=== PATIENT | female | born 1990 | race American Indian/Alaskan Native ===

== ENCOUNTER 2020-07-21 13:30 | Emergency (ER) | payer SELFPAY ==
[2020-07-21 14:06] VITALS: BP 108/64
[2020-07-21] MEDS ORDERED: ACETAMINOPHEN 325 MG TAB PO ONE (17:11)
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
== END 2020-07-21 19:35 | disposition home or self-care (01) ==
LOC: ED 13:30
DX: O9A.211 Injury, poisoning and certain other consequences of external causes complicating pregnancy, first trimester (principal); S39.012A Strain of muscle, fascia and tendon of lower back, initial encounter; R50.9 Fever, unspecified; R10.2 Pelvic and perineal pain; Z3A.12 12 weeks gestation of pregnancy; V89.2XXA Person injured in unspecified motor-vehicle accident, traffic, initial encounter; Y93.89 Activity, other specified; Y92.410 Unspecified street and highway as the place of occurrence of the external cause; Y99.8 Other external cause status
CPT/HCPCS: 76801; 76817

== ENCOUNTER 2021-01-01 10:06 | Outpatient (CLI) | payer MEDICAID, OTHER ==
[2021-01-01 11:30] VITALS: BP 125/73
[2021-01-01] MEDS ORDERED: LACTATED RINGERS 1,000 ML IV ONE (11:30)
== END 2021-01-01 11:59 | disposition home or self-care (01) ==
LOC: TRG 10:06 → APU 10:07 → TRG 11:59
PROVIDERS: ATTEND Obstetrics & Gynecology
DX: Z34.93 Encounter for supervision of normal pregnancy, unspecified, third trimester (principal); Z3A.36 36 weeks gestation of pregnancy
CPT/HCPCS: 59025

== ENCOUNTER 2021-02-01 08:36 | Inpatient (IN) | payer MEDICAID ==
[2021-02-01] MEDS ORDERED: TERBUTALINE 1 MG/1 ML INJ SUB-Q PRN (09:21)
[2021-02-01] MEDS ORDERED: LIDOCAINE (2%) 20 MG/1 ML VIAL 20 ML MDV INFILTRATI NR (09:21)
[2021-02-01] MEDS ORDERED: OXYTOCIN DRIP 30,000 MILLIUNITS/500 ML BAG IV ONE (09:49)
--- NOTE | 2021-02-01 09:49 | History and Physical Report ---
History of Present Illness Date of examination: 02/01/21 Date of admission: 02/01/2021 Chief complaint: Active labor History of present illness: 30-year-old -0-0-2 at 38 and 4/7 weeks in active labor. care at [facility] with Dr. Yudith WYMAN 01/29/2020 bone by last normal menstrual period First visit at 7-3/7 weeks, last visit at 35-1/7 weeks with a total of 7 visits A positive antibody screen negative Varicella immune AFP screen negative HIV negative Hep B negative RPR nonreactive Rubella immune Fragile X syndrome positive Cystic fibrosis negative Past History Past Surgical History: no surgical history - Obstetrical History Expected Date of Delivery: 01/28/21 Actual Gestation: 40 Week(s) 4 Day(s) : 3 Medications and Allergies Allergies Allergy/AdvReac Type Severity Reaction Status Date / Time No Known Allergies Allergy Verified 10/11/14 15:48 Home Medications Medication Instructions Recorded Confirmed Last Taken Type No Known Home Medications [No 10/11/14 10/11/14 Unknown History Reported Home Medications] Active Meds: Active Medications Acetaminophen (Acetaminophen 325 Mg Tab) 650 mg PO Q4H PRN PRN Reason: Pain, Mild (1-3) Butorphanol Tartrate (Butorphanol 2 Mg/1 Ml Inj) 1 mg IV Q2H PRN PRN Reason: Pain, Moderate(4-6) LABOR PAIN Butorphanol Tartrate (Butorphanol 2 Mg/1 Ml Inj) 2 mg IV Q2H PRN PRN Reason: Pain , Severe (7-10) Ephedrine Sulfate (Ephedrine Sulfate 50 Mg/1 Ml Inj) 10 mg IV Q2M PRN PRN Reason: Hypotension Oxytocin/Sodium Chloride (Pitocin/Ns 30 Unit/500ml) 30 units in 500 mls @ 2 mls/hr IV TITR CECILIA; Protocol Lactated Ringer's (Lactated Ringers) 1,000 mls @ 125 mls/hr IV DIRECT CECILIA Oxytocin/Sodium Chloride (Pitocin/Ns 30 Unit/500ml) 30 units in 500 mls @ 40 mls/hr IV TITR CECILIA; Protocol Lidocaine (Lidocaine (2%) 20 Mg/1 Ml Vial 20 Ml Mdv) 20 ml INFILTRATI ONCE ONE Stop: 02/01/21 09:22 Mineral Oil (Mineral Oil 30 Ml Oral Liqd) 30 ml PO QHS PRN PRN Reason: Constipation Terbutaline Sulfate (Terbutaline 1 Mg/1 Ml Inj) 0.25 mg SUB-Q ONCE PRN PRN Reason: Hyperstimulation/Hypertonicity - Vital Signs Vital signs: Vital Signs Temp Pulse BP Pulse Ox 98.5 F 101 H 129/79 99 02/01/21 09:17 02/01/21 09:17 02/01/21 09:17 02/01/21 09:17 Temp Pulse Resp BP Pulse Ox 98.5 F 91 H 129/79 99 02/01/21 09:17 02/01/21 09:37 02/01/21 09:19 02/01/21 09:37 - Physical Exam Breasts: Positive: deferred Cardiovascular: Regular rate Lungs: Positive: Clear to auscultation Abdomen: Positive: normal appearance, normal bowel sounds Genitourinary (Female): Positive: normal external genitalia Anus/Rectum: Positive: normal perianal skin Extremities: Positive: normal Deep Tendon Reflex Grade: Normal +2 - Obstetrical FHR: category 1 Cervical Dilatation: 5 Uterine Contraction Frequency (min): 2 Uterine Contraction Pattern: Regular Results All other labs normal. Assessment and Plan active labor Plan: CFM pain meds prn maternal/ well being reassuring at bedside continue current management, expect LISY Jennings MD
[2021-02-01] MEDS ORDERED: BUTORPHANOL 2 MG/1 ML INJ IV PRN ×2 (10:00)
[2021-02-01] MEDS ORDERED: OXYTOCIN DRIP 30 UNITS/500 ML BAG IV SCH ×2 (10:00)
[2021-02-01] MEDS ORDERED: ACETAMINOPHEN 325 MG TAB PO PRN (10:00)
[2021-02-01] MEDS ORDERED: LACTATED RINGERS 1,000 ML IV SCH (10:00)
[2021-02-01] MEDS ORDERED: ePHEDrine SULFATE 50 MG/1 ML INJ IV PRN (10:00)
--- NOTE | 2021-02-01 10:16 | Progress Note ---
Subjective - Subjective Date of service: 02/01/21 Interval history: 5/100/-3 AROM thick meconium FHT Category 1 plan for epidural Josué Jennings MD Objective - Vital Signs Vital Signs: Vital Signs - 12hr 02/01/21 02/01/21 02/01/21 09:17 09:19 09:22 Temperature 98.5 F Pulse Rate 95 H 84 95 H Respiratory Rate Blood Pressure 129/79 Blood Pressure 129/79 [Right] O2 Sat by Pulse 100 98 Oximetry 02/01/21 02/01/21 02/01/21 09:27 09:32 09:37 Temperature Pulse Rate 92 H 94 H 91 H Respiratory Rate Blood Pressure Blood Pressure [Right] O2 Sat by Pulse 99 99 99 Oximetry 02/01/21 02/01/21 02/01/21 09:42 09:52 09:54 Temperature Pulse Rate 98 H 89 Respiratory 22 Rate Blood Pressure Blood Pressure [Right] O2 Sat by Pulse 100 98 Oximetry 02/01/21 02/01/21 02/01/21 09:58 09:59 10:04 Temperature Pulse Rate 91 H 82 78 Respiratory Rate Blood Pressure Blood Pressure [Right] O2 Sat by Pulse 93 97 97 Oximetry 02/01/21 10:09 Temperature Pulse Rate 81 Respiratory Rate Blood Pressure Blood Pressure [Right] O2 Sat by Pulse 96 Oximetry
[2021-02-01 10:30] LABS: Hematocrit 35.6 % (30.3-42.9); Hemoglobin 12.1 gm/dl (10.1-14.3); Mean Corpuscular HGB Conc 34 % (30-34); Mean Corpuscular Volume 91 fl (79-97); Platelet Count 184 K/mm3 (140-440); Red Blood Count 3.93 M/mm3 (3.65-5.03); Red Cell Distribution Width 15.6 % (13.2-15.2)
[2021-02-01] MEDS ORDERED: ONDANSETRON 4 MG/2 ML INJ IV PRN (11:00)
[2021-02-01] MEDS ORDERED: NalbUPHINE 10 MG/1 ML INJ IV PRN (11:00)
[2021-02-01] MEDS ORDERED: NALOXONE 2 MG/2 ML INJ IV PRN (11:00)
[2021-02-01] MEDS ORDERED: LACTATED RINGERS 250 ML IV SOLN IV ONE (11:00)
[2021-02-01] MEDS ORDERED: diphenhydrAMINE 50 MG/ML VIAL IV PRN (11:00)
[2021-02-01] MEDS: fentaNYL-BUPIV 2 MCG/ML-0.125% 200 MCG/100 ML BAG EPIDURAL SCH ×2 (11:22→19:38)
--- NOTE | 2021-02-01 11:36 | Anesthesia Consultation ---
Anesthesia Consult and Med Hx Date of service: 02/01/21 - Airway Anesthetic Teeth Evaluation: Good ROM Head & Neck: Adequate Mental/Hyoid Distance: Adequate Mallampati Class: Class II Intubation Access Assessment: Probably Good - Pulmonary Exam CTA: Yes - Cardiac Exam Cardiac Exam: RRR - Pre-Operative Health Status ASA Pre-Surgery Classification: ASA2 Proposed Anesthetic Plan: Epidural - Pulmonary Hx Smoking: No Hx Asthma: No COPD: No Hx Pneumonia: No Hx Sleep Apnea: No - Cardiovascular System Hx Hypertension: No Hx Heart Attack/AMI: No Hx Angina: No - Central Nervous System Hx Seizures: No Hx Psychiatric Problems: No - Endocrine Hx Renal Disease: No Hx End Stage Renal Disease: No Hx Liver Disease: No Hx Insulin Dependent Diabetes: No Hx Non-Insulin Dependent Diabetes: No Hx Hypothyroidism: No Hx Hyperthyroidism: No - Hematic Hx Anemia: No Hx Sickle Cell Disease: No - Other Systems Hx Alcohol Use: No
--- NOTE | 2021-02-01 11:37 | Progress Note ---
Labor Epidural - Labor Epidural Start Time: 10:50 Stop Time: 11:05 Performed by:: LORA SALDANA Procedure: Patient is requesting epidural for labor and pain. H&P, labs were reviewed. Patient IDed, H&P reviewed, all questions and concerns were answered, and consent was signed. Timeout was performed at bedside. Patient in sitting position. Sterile prep and drape was performed. 3ml of 1% lidocaine skin wheal at L[3]- L [4]. 18-gauge Tuohy epidural needle was advanced to loss of resistance with air technique 7cm. Negative CSF negative blood. Epidural catheter advanced to [13] centimeters. [negative] Aspiration [negative] test dose. Sterile dressing applied. Patient tolerated procedure.
--- NOTE | 2021-02-01 12:34 | Event Note ---
Date: 02/01/21 Assumed care of patient at 10:30 AM. Patient is comfortable after receiving epidural. SVE /-3; meconium stained amniotic fluid noted. No lesion seen on careful exam under bright light.
--- NOTE | 2021-02-01 13:58 | Event Note ---
Date: 02/01/21 SVE 80/-2.
--- NOTE | 2021-02-01 15:57 | Event Note ---
Date: 02/01/21 IUPC placed to determine adequacy of contractions. No cervical change at this time.
--- NOTE | 2021-02-01 18:10 | Event Note ---
Date: 02/01/21 Patient reports pelvic pressure. SVE /-1.
[2021-02-01] MEDS ORDERED: BUPIVACAINE/PF (0.25%) 2.5 MG/ML 10 ML VIAL INFILTRATI ONE ×2 (18:19→21:50)
--- NOTE | 2021-02-01 21:59 | Event Note ---
Date: 02/01/[address] Jennings re: patient and slow cervical change. SVE 9/[address]/-[address] Jennings orders to stop Pitocin for 2 hours and to start patient on Ampicillin and Gentamicin. Orders put in and informed patient's nurse of the above orders.
[2021-02-01] MEDS ORDERED: AMPICILLIN/NS 2 GM/100 ML 2 GM/100 ML BAG IV SCH (22:00)
[2021-02-01] MEDS ORDERED: MINERAL OIL 30 ML ORAL LIQD PO PRN (22:00)
[2021-02-01 22:44] LABS: Alanine Aminotransferase 15 units/L (7-56); Albumin 3.5 g/dL (3.9-5); Blood Urea Nitrogen 6 mg/dL (7-17); Calcium 8.7 mg/dL (8.4-10.2); Hemolysis Index 38
[2021-02-01 22:45] LABS: BUN/Creatinine Ratio 9
[2021-02-01] MEDS ORDERED: GENTAMICIN/NS 100 MG/100 ML 100 MG/100 ML BAG IV SCH (23:00)
--- NOTE | 2021-02-02 02:27 | Event Note ---
Date: 02/02/21 Cervix anterior lip at 01:30. At 01:45 patient had a strong urge to push. Pushed for about 20 minutes with no change in station and variable FHR decelerations with pushing. Consulted with Dr. Jennings re: cervical dilation, attempt at pushing with no change in station, and FHR tracing. Dr. Jennings states to allow patient to labor down/rest for 2 hours, then try to push again.
[2021-02-02] MEDS ORDERED: miSOPROStol 200 MCG TAB VG ONE (03:00)
[2021-02-02] MEDS ORDERED: miSOPROStol 200 MCG TAB ONE (03:01)
[2021-02-02] MEDS ORDERED: METHYLERGONOVINE MALEATE 0.2 MG/ML VIAL IM ONE (03:01)
[2021-02-02] MEDS ORDERED: PROMETHAZINE 25 MG TAB PO PRN ×2 (03:14→05:31)
[2021-02-02] MEDS ORDERED: ONDANSETRON 4 MG/2 ML INJ IV PRN ×2 (03:14→05:31)
[2021-02-02] MEDS ORDERED: HYDROcodone/ACETAMINOPHEN 5-325 MG TAB PO PRN ×2 (03:14→13:27)
[2021-02-02] MEDS ORDERED: PROMETHAZINE 25 MG RECT SUPP PR PRN ×2 (03:14→05:31)
[2021-02-02] MEDS ORDERED: WITCH HAZEL/ GLYCERIN PAD TP PRN ×2 (03:14→05:31)
[2021-02-02] MEDS ORDERED: diphenhydrAMINE 25 MG CAP PO PRN ×2 (03:14→05:31)
[2021-02-02] MEDS ORDERED: LANOLIN/ZINC/DIMETHICONE (LANSINOH) 7 GM TP PRN ×2 (03:14→05:31)
[2021-02-02] MEDS ORDERED: ACETAMINOPHEN 325 MG TAB PO PRN (03:14)
[2021-02-02] MEDS ORDERED: MAGNESIUM HYDROXIDE (MOM) ORAL LIQD UDC PO PRN ×2 (03:14→05:31)
--- NOTE | 2021-02-02 03:14 | Procedure Note ---
OB Delivery Note - Delivery Date of Delivery: 02/02/21 Surgeon: STEVEN KOLB Estimated blood loss: 200cc - Vaginal Delivery position: OA Intrapartum events: febrile- temp >100.3, meconium Delivery induction: none Delivery augmentation: rupture of membranes, pitocin Delivery monitor: external FHT, external uterine Route of delivery: Delivery placenta: spontaneous Delivery cord: 3 umbilical vessels Episiotomy: none Delivery laceration: none Delivery comments: Patient pushed to deliver a viable female,over an intact perineum with weight 4185gms and 8/9. Position MELINDA, no nuchal cord. Spontaneous cry at delivery. Delivery of the anterior shoulder atraumatic, remainder of delivery uncomplicated. Cord clamped cut and baby handed to waiting [facility] team. Sp ontaneous delivery of an intact placenta with three-vessel cord. Inspection of the perineum cervix and vagina revealed no lacerations. Firm fundus, EBL 200ml. All sponge needle and instrument counts correct x2. Mom and baby stable to . Josué Kolb MD
[2021-02-02] MEDS ORDERED: IBUPROFEN 600 MG TAB PO SCH (04:00)
[2021-02-02] MEDS: IBUPROFEN 600 MG TAB PO SCH ×4 (05:47→23:19)
[2021-02-02] MEDS ORDERED: METHYLERGONOVINE MALEATE 0.2 MG/ML VIAL IM PRN (05:49)
[2021-02-02] MEDS: DOCUSATE SODIUM 100 MG CAP PO SCH ×2 (09:42→23:19)
--- NOTE | 2021-02-02 14:00 | Post Anesthesia Evaluation ---
- Post Anesthesia Evaluation Patient Participated: Yes Airway Patent: Yes Stable Respiratory Function: Yes Nausea/Vomiting: No Temp > 96.8F: Yes Pain Manageable: Yes Adequeate Hydration: Yes Anesthesia Complications: No Block Receding Appropriately: Yes Patient on Ventilator: No
[2021-02-02 18:10] LABS: Hematocrit 37.4 % (30.3-42.9); Hemoglobin 12.4 gm/dl (10.1-14.3)
[2021-02-03] MEDS: IBUPROFEN 600 MG TAB PO SCH ×2 (05:38→12:53)
[2021-02-03 09:59] VITALS: BP 124/85
[2021-02-03] MEDS: DOCUSATE SODIUM 100 MG CAP PO SCH (12:53)
--- NOTE | 2021-02-03 18:16 | Progress Note ---
Assessment and Plan A: day 1 S/P . P: Discharge patient home today. Discussed with patient discharge instructions and warning signs. Advised patient to continue taking her vitamins and iron supplements at home. Advised patient to avoid intercourse, lifting, housework. Advised patient to follow up at [facility] in 1 week. Patient voiced understanding of all instructions. Subjective - Subjective Date of service: 02/03/21 Principal diagnosis: day 1 S/P Interval history: Patient requests to be discharged home today. Baby is being discharged. Patient has no complaints. Doing well. Patient reports: appetite normal, voiding normally, pain well controlled, flatus, ambulating normally, no dizzy ambulation, no nauseated [place]: doing well Objective - Vital Signs Latest vital signs: Vital Signs Temp Pulse Resp BP Pulse Ox 02/03/21 12:53 16 02/03/21 08:07 98.0 F 75 18 124/85 94 02/03/21 05:38 20 02/03/21 00:07 97.7 F 73 20 90/56 98 02/02/21 23:19 20 Intake and Output 02/03/21 02/03/21 02/03/21 07:59 15:59 23:59 Intake Total 1320 Balance 1320 Intake: Oral 1320 Other: Total, Intake Amount 1200 # Voids Void 1 - Exam Cardiovascular: Present: Regular rate Lungs: Present: Clear to auscultation Abdomen: Present: normal appearance, soft, normal bowel sounds. Absent: distention, tenderness, guarding, rigidity Uterus: Present: normal, firm, fundal height below umbilicus. Absent: bogginess, tenderness Extremities: Present: normal. Absent: tenderness, edema
--- NOTE | 2021-02-03 18:21 | Discharge Summary ---
Providers - Providers Date of Admission: 02/01/21 09:21 Date of discharge: 02/03/21 Attending physician: STEVEN KOLB MD Primary care physician: STEVEN KOLB MD Hospitalization Reason for admission: active labor Delivery: Episiotomy: none Laceration: none Other procedures: none complications: none Discharge diagnosis: IUP at term delivered baby: female Pertinent studies: Labs Hospital course: Stable hospital course. Condition at discharge: Good Disposition: DC-01 TO HOME OR SELFCARE - Discharge Diagnoses (1) Term delivered Status: Acute Plan - Provider Discharge Summary Activity: routine, no sex for 6 weeks, no heavy lifting 4 weeks, no strenuous exercise Diet: routine Instructions: routine Additional instructions: Continue taking your vitamins and iron supplements at home. Follow up in the [facility] in 1 week. Call your doctor immediately for: * Fever > 100.5 * Heavy vaginal bleeding ( >1 pad per hour) * Severe persistent headache * Shortness of breath * Reddened, hot, painful area to leg or breast - Follow up plan Follow up: STEVEN KOLB MD [Primary Care Provider] - 7 Days Forms: [facility] Discharge Summary
== END 2021-02-03 19:30 | disposition home or self-care (01) | DRG 775 ==
LOC: TRG 08:36 → APU 08:43 → LD 09:21 → TRG 09:44 → OB 02-02 05:37
PROVIDERS: ADMIT Obstetrics & Gynecology; ATTEND Obstetrics & Gynecology
PROC: 10907ZC Drainage of Amniotic Fluid, Therapeutic from Products of Conception, Via Natural or Artificial Opening (ICD-10-PCS; 2021-02-01)
PROC: 3E0R3BZ Introduction of Anesthetic Agent into Spinal Canal, Percutaneous Approach (ICD-10-PCS; 2021-02-01)
PROC: 00HU33Z Insertion of Infusion Device into Spinal Canal, Percutaneous Approach (ICD-10-PCS; 2021-02-01)
PROC: 10H07YZ Insertion of Other Device into Products of Conception, Via Natural or Artificial Opening (ICD-10-PCS; 2021-02-01)
PROC: 10E0XZZ Delivery of Products of Conception, External Approach (ICD-10-PCS; principal; 2021-02-02)
DX: O77.0 Labor and delivery complicated by meconium in amniotic fluid (principal); Z37.0 Single live birth; Z3A.40 40 weeks gestation of pregnancy; O76 Abnormality in fetal heart rate and rhythm complicating labor and delivery; Z20.822 Contact with and (suspected) exposure to COVID-19
CPT/HCPCS: 36415; 80053; 85014; 85018; 85027; 86850; 86900; 86901; G0378; J0290; J0595; J1580; J2210; J2590; J7120; U0003